=== PATIENT | female | born 1995 | race Two or more races ===

== ENCOUNTER 2017-02-15 14:18 | Outpatient (CLI) | payer OTHER ==
[~2017-02-15] VITALS: Ht 154.9 cm; Wt 65.3 kg
[2017-02-15] MEDS ORDERED: PREN1TAB79 PO (14:53)
[2017-02-15 14:54] VITALS: BP 114/57; PULSE 100; RESP 18; Ht 154.9 cm; Wt 65.3 kg
[2017-02-15 16:11] LABS: ADD UMIC NO; UR ASCORBIC ACID NEGATIVE (NEGATIVE); UR BACTERIA FEW /HPF (NONE SEEN); UR BILIRUBIN (Dip) NEGATIVE (NEGATIVE); UR BLOOD (Dip) NEGATIVE (NEGATIVE); UR CLARITY SLIGHTLY CLOUDY (CLEAR); UR COLOR YELLOW (YELLOW); UR GLUCOSE (Dip) NEGATIVE (NEGATIVE); UR KETONES (Dip) TRACE mg/dL (NEGATIVE); UR LEUKOCYTE ESTERASE (Dip) NEGATIVE Leu/ul (NEGATIVE); UR MUCUS FEW /HPF (NONE SEEN); UR NITRITE (Dip) NEGATIVE (NEGATIVE); UR RBC 0 /HPF (0-5); UR SPECIFIC GRAVITY (Dip) 1.014 (1.003-1.030); UR SQUAMOUS EPITHELIAL CELL FEW /HPF (FEW); UR TOTAL PROTEIN (Dip) NEGATIVE (NEGATIVE); UR UROBILINOGEN (Dip) NEGATIVE (NEGATIVE)
--- NOTE | 2017-02-15 16:39 | RADRPT ---
PROCEDURE: US evaluation of amniotic fluid volume. CLINICAL INDICATION: Vaginal discharge. TECHNIQUE: Multiple sonographic images of the gravid uterus were obtained utilizing pinto-scale mickie ging. Sagittal and transverse images were obtained. The images were reviewed on a PACS workstation . NITIN was measured. COMPARISON: No prior studies are available for comparison. FINDINGS: There is a single live intrauterine . heart rate is 154 beats per minute. Position is cephalic. Placenta is right lateral grade II with no abruption or previa. NITIN is 14.9 cm. (Normal = 5-20 cm.) IMPRESSION: 1. NITIN is 14.9 cm. RPTAT: QQ .Andres Barbosa MD, MD Date Time Electronically viewed and signed by .Andres Barbosa MD, on 02/15/2017 16:38 .R/
--- NOTE | 2017-02-15 17:25 | TRIAGE ---
OB Triage Datetime Report Generated by CPN: 02/15/2017 17:25 Datetime: 02/15/2017 15:47 Stage of : OB Triage Maternal Assessment Level of Consciousness: Fully Conscious Labor Evaluation Frequency: NONE Monitor Mode: External Resting Tone Plain: Relaxed Heart Rate FHR Baseline Rate: 135 Monitor Mode: External US Variability: Moderate 6-25 bpm Accelerations: 15X15 Decelerations: None Category: Category I Pain Assessment Pain Scale: 0 Pain Goal: 3 Vaginal Exam Membrane Status: Intact Vaginal Bleeding: None Datetime: 02/15/2017 15:45 Pool: Negative Nitrazine: Negative Datetime: 02/15/2017 14:51 Assessment Type: Triage Maternal Assessment Level of Consciousness: Fully Conscious DTR's/Clonus: DTRs 2+; No Clonus Headache: Denies Blurred Vision: No Respiratory Effort: Unlabored; Regular Rhythm; Equal Expansion Breath Sounds, Left: Clear and Equal Breath Sounds, Right: Clear and Equal Nausea/Vomiting: Denies RUQ Epigastric Pain: Denies Lower Extremities Edema: None Degree: None Upper Extremities Edema: None Degree: None Facial Edema: None Fall Risk Assessment History of Falling: (0) No Secondary Diagnosis: (0) No Ambulatory Aid: (0) Bedrest/Nurse Assist IV Therapy: (0) No Gait: (0) Normal/Bedrest/Immobile Mental Status: (0) Oriented to Own Ability Fall Score: 0 Fall Risk Score Definition: No Risk: No action required Datetime: 02/15/2017 14:50 Time of Arrival: 02/15/2017 14:10 EGA: 32.4 Arrived By: Ambulatory Arrived From: Home Chief Complaint: PT HERE C/O PAIN AND BURING WITH URINATION Movement: Present Contractions: Denies/Absent Rupture of Membranes: Denies Vaginal Bleeding: None Vaginal Discharge: Denies Recent Sexual Intercouse: Denies Abdominal Trauma: Not Applicable Patient Complaints: Cramping Time Provider Notified: 02/15/2017 15:00 Provider Notified: LAURA Initial Plan: NITIN/EFM/UA Datetime: 02/15/2017 14:33 Monitor Mode: External Monitor Mode: External US
--- NOTE | 2017-02-15 18:02 | PN ---
Triage Information Date/Time 02/15/2017 Reason for visit: vaginal discharge Weeks of Gestation 32 weeks and 4/7 /Para Diabetes: none Hypertention: none Additional information 21 years old with IUP at 32 weeks and 4/7 with care at outside facility and history of incompetence cervix, s/p Cerclage since 13 weeks presented with complaint of itching and vaginal discharge since this am, Reports burning sensation with urination. Patient states that was seen about 3- 4 weeks ago in [place] for vacation when she was complaining of vaginal discharge and examined and was told that she has yeast infection, but never been able to use medication Denies any vaginal bleeding, decreased movement, uterine contractions or any other symptoms. Objective Vital Signs Date Time Temp Pulse Resp B/P Pulse Ox O2 Delivery O2 Flow Rate FiO2 02/15/17 14:54 98.7 100 18 114/57 Room Air Heart Rate: 130's Contractions: None Exam GA: A&O, NAD Andomem: soft, gravid, non tender, Fundal height consistent with gestational age Speculum examination: Cervix closed. Circulation appropriate position. White thick vaginal discharge consistent with Clementina noted. No evidence of leaking of fluid. Nitrazine negative. Pulling negative. Exam consistent with Clementina vaginitis Results/Medications Results 24 hrs Laboratory Tests Test 02/15/17 14:45 Urine Color YELLOW Urine Clarity SLIGHTLY CLOUDY A Urine pH 7.0 Urine Specific [place] 1.014 Urine Ketones TRACE A Urine Nitrite NEGATIVE Urine Bilirubin NEGATIVE Urine Urobilinogen NEGATIVE Urine Leukocyte Esterase NEGATIVE Urine Microscopic RBC 0 Urine Microscopic WBC 1 Urine Squamous Epithelial Cells FEW Urine Bacteria FEW A Urine Mucus FEW A Urine Hemoglobin NEGATIVE Urine Glucose NEGATIVE Urine Total Protein NEGATIVE Imaging Results PROCEDURE: US evaluation of amniotic fluid volume. CLINICAL INDICATION: Vaginal discharge. TECHNIQUE: Multiple sonographic images of the gravid uterus were obtained utilizing pinto-scale imaging. Sagittal and transverse images were obtained. The images were reviewed on a PACS workstation. NITIN was measured. COMPARISON: No prior studies are available for comparison. FINDINGS: There is a single live intrauterine . heart rate is 154 beats per minute. Position is cephalic. Placenta is right lateral grade II with no abruption or previa. NITIN is 14.9 cm. (Normal = 5-20 cm.) IMPRESSION: 1. NITIN is 14.9 cm. RPTAT: QQ Disposition: Discharge Assessment/Plan IUP at 32 weeks and 4 days Not in PTL s/p Cerclage for incompetent cervix Vaginal dischage, consistent with clementina vaginitis NST: Cat 1 BPP: 12/20 DC Home PTL precaution kick counts Follow up in 1-2 days with OB office Advised to use Monistat vaginal cream, over the counter and to use for 7 days RTC PRN any other concerns, LOF, vaginal bleeding, decreased movmenet or any other concerns. ANDREZ SANCHEZ MD Feb 15, 2017 18:02
== END 2017-02-15 17:25 | disposition home or self-care (01) ==
LOC: L-D 14:18 → OBT 14:18
PROVIDERS: ATTEND Obstetrics & Gynecology Obstetrics
DX: O26.893 Other specified pregnancy related conditions, third trimester (principal); Z3A.32 32 weeks gestation of pregnancy; N89.8 Other specified noninflammatory disorders of vagina
CPT/HCPCS: 76815; 81001; Z7500; 81003; G0463